=== PATIENT | male | born 1975 | race Caucasian/White ===

== ENCOUNTER → 2017-03-11 | Outpatient (CLI) | payer MEDICAID | LOC: OD 08:55 | PROVIDERS: ATTEND Urology | DX: R53.82 Chronic fatigue, unspecified (principal) | CPT/HCPCS: 36415; 82533; 84443 ==

== ENCOUNTER 2018-11-18 17:08 | Emergency (ER) | payer MEDICAID ==
[2018-11-18] MEDS ORDERED: IPRATROPIUM/ALBUTEROL 0.5-2.5 MG/3 ML AMPUL NEB ONE ×2 (18:17→19:31)
[2018-11-18] MEDS ORDERED: NORMAL SALINE 1000 ML 1,000 ML IV ONE (18:17)
--- NOTE | 2018-11-18 18:19 | ER Document Report ---
ED Medical Screen (RME) - General Chief Complaint: Flu Symptoms Stated Complaint: POSSIBLE PROSTATE ISSUE, FLU SYMPTOMS Time Seen by Provider: 11/18/18 18:14 Mode of Arrival: Wheelchair Information source: Patient Notes: Patient is a 43-year-old male who presents to the emergency department today with multiple complaints. Patient reports flulike symptoms to include fever, cough, congestion and wheezing. He states he has been exposed to people with the flu. Patient reports body aches, nausea and diarrhea. Patient also reports bilateral testicle pain with difficulty urinating and dark urine. He states he has a history of prostatitis and states this feels similar. Patient denies any ongoing medical issues and denies using any medications daily. Exam: Expiratory wheezes noted bilaterally, no respiratory distress noted. I have greeted and performed a rapid initial assessment of this patient. A comprehensive ED assessment and evaluation of the patient, analysis of test results and completion of the medical decision making process will be conducted by additional ED providers. Dictation of this chart was performed using voice recognition software; therefore, there may be some unintended grammatical errors. TRAVEL OUTSIDE OF THE [place] IN LAST 30 DAYS: No - Related Data Allergies/Adverse Reactions: No Known Allergies Allergy (Verified 11/18/18 17:09) Past Medical History - Social History Chew tobacco use (# tins/day): No Frequency of alcohol use: None Drug Abuse: None Renal/ Medical History: Reports: Hx Kidney Stones. Denies: Hx Peritoneal Dialysis Skin Medical History: Reports Hx MRSA - Immunizations Hx Diphtheria, Pertussis, Tetanus Vaccination: Yes Physical Exam - Vital signs Vitals: Temp Pulse Resp BP Pulse Ox 98.2 F 104 H 20 114/81 97 11/18/18 17:14 11/18/18 17:14 11/18/18 17:14 11/18/18 17:14 11/18/18 17:14 Course - Vital Signs Vital signs: Temp Pulse Resp BP Pulse Ox 98.2 F 104 H 20 114/81 97 11/18/18 17:14 11/18/18 17:14 11/18/18 17:14 11/18/18 17:14 11/18/18 17:14 Doctor's Discharge - Discharge Referrals: UMU MAGALLON MD [Primary Care Provider] - Follow up as needed
[2018-11-18 18:49] LABS: ABSOLUTE BASOPHILS # (AUTO) 0.1 10^3/uL (0.0-0.2); ABSOLUTE LYMPHOCYTES (AUTO) 0.9 10^3/uL (0.5-4.7); ABSOLUTE MONOCYTES (AUTO) 0.8 10^3/uL (0.1-1.4); ABSOLUTE NEUT (AUTO) 10.3 10^3/uL (1.7-8.2); BASOPHILS % (AUTO) 0.4 % (0-2); EOSINOPHILS % (AUTO) 0.1 % (0-6); HEMOGLOBIN 15.4 g/dL (13.5-17.0); LYMPHOCYTES % (AUTO) 7.2 % (13-45); MEAN CORPUSCULAR HEMOGLOBIN 30.1 pg (27.0-33.4); MEAN CORPUSCULAR VOLUME 86 fl (80-97); MONOCYTES % (AUTO) 6.5 % (3-13); PLATELET COUNT 200 10^3/uL (150-450); RED BLOOD COUNT 5.12 10^6/uL (4.35-5.55); RED CELL DISTRIBUTION WIDTH 13.3 % (11.5-14.0); SEGMENTED NEUTROPHILS % (AUTO) 85.8 % (42-78); TOTAL CELLS COUNTED % (AUTO) 100 %
--- NOTE | 2018-11-18 19:05 | RADIOLOGY REPORT (SQ) ---
EXAM DESCRIPTION: CHEST 2 VIEWS COMPLETED DATE/TIME: 11/18/2018 6:43 pm REASON FOR STUDY: cough, fever COMPARISON: 09/15/2013 EXAM PARAMETERS: NUMBER OF VIEWS: two views TECHNIQUE: Digital Frontal and Lateral radiographic views of the chest acquired. RADIATION DOSE: NA LIMITATIONS: none FINDINGS: LUNGS AND PLEURA: Cannot exclude limited infiltrate in the right lung laterally. Not sugg ested on the lateral view. No effusion no mass. MEDIASTINUM AND HILAR STRUCTURES: No masses or contour abnormalities. HEART AND VASCULAR STRUCTURES: Heart normal size. No evidence for failure. BONES: No acute findings. HARDWARE: None in the chest. OTHER: No other significant finding. IMPRESSION: Cannot exclude a limited right middle lobe or lower lobe infiltrate. TECHNICAL DOCUMENTATION: JOB ID: [id number] [employer]- All Rights Reserved Reading location - IP/workstation name: [email or web address]
[2018-11-18 19:13] LABS: ALANINE AMINOTRANSFERASE 41 U/L (21-72); ALBUMIN 4.9 g/dL (3.5-5.0); ALKALINE PHOSPHATASE 81 U/L (38-126); ANION GAP 10 (5-19); ASPARTATE AMINO TRANSFERASE 37 U/L (17-59); BILIRUBIN,DIRECT 0.4 mg/dL (0.0-0.4); BILIRUBIN,TOTAL 0.9 mg/dL (0.2-1.3); BLOOD UREA NITROGEN 15 mg/dL (7-20); CALCIUM 9.3 mg/dL (8.4-10.2); CARBON DIOXIDE 24 mmol/L (22-30); CHLORIDE 102 mmol/L (98-107); GLUCOSE 120 mg/dL (75-110); POTASSIUM 4.2 mmol/L (3.6-5.0); SODIUM 135.9 mmol/L (137-145); TOTAL PROTEIN 8.4 g/dL (6.3-8.2)
--- NOTE | 2018-11-18 19:30 | ER Document Report ---
ED General - General Chief Complaint: Flu Symptoms Stated Complaint: POSSIBLE PROSTATE ISSUE, FLU SYMPTOMS Time Seen by Provider: 11/18/18 18:14 Mode of Arrival: Wheelchair Notes: Patient is a 43-year-old male who presents to the emergency department with multiple chief complaints. He states that he feels his prostatitis is acting up. He does complain of some burning when he urinates, but denies penile discharge. A little over a year ago he was diagnosed with prostatitis and was given multiple antibiotics and was given a strong antibiotic that is really used to treat infections. He has been complaining of the symptoms for the the past 2 weeks, but has not seen his urologist for his issues. He has also had a cough and wheezing for the past 2 days. He also complains of sweating profusely, which he normally does, but over the past 2 days he feels he has been sweating more than normal. Every time he coughs it aggravates his prostatitis. He was taking an albuterol inhaler at home, with little relief. TRAVEL OUTSIDE OF THE [place] IN LAST 30 DAYS: No - Related Data Allergies/Adverse Reactions: No Known Allergies Allergy (Verified 11/18/18 17:09) Past Medical History - General Information source: Patient - Social History Smoking Status: Never Smoker Chew tobacco use (# tins/day): No Frequency of alcohol use: None Drug Abuse: None Family History: Reviewed & Not Pertinent Patient has suicidal ideation: No Patient has homicidal ideation: No Renal/ Medical History: Reports: Hx Kidney Stones. Denies: Hx Peritoneal Dialysis Skin Medical History: Reports Hx MRSA - Immunizations Hx Diphtheria, Pertussis, Tetanus Vaccination: Yes Review of Systems - Review of Systems Notes: REVIEW OF SYSTEMS: CONSTITUTIONAL : See HPI EENT: Denies eye, ear, throat, or mouth pain, discharge, or symptoms. Denies nasal or sinus congestion. CARDIOVASCULAR: See HPI RESPIRATORY: See HPI GASTROINTESTINAL: Denies nausea, vomiting, and diarrhea. Denies abdominal pain. Denies constipation. GENITOURINARY: Denies difficulty urinating, burning, blood in urine, urgency or frequency. MUSCULOSKELETAL: Denies neck and back pain. Denies joint pain or swelling. SKIN: Denies rash, itchiness, or lesions HEMATOLOGIC : Denies easy bruising or bleeding. LYMPHATIC: Denies swollen, painful, enlarged glands. NEUROLOGICAL: Denies no numbness or tingling denies weakness. Denies headache. Denies altered mental status. Denies alteration in speech. PSYCHIATRIC: Denies stress, anxiety, alteration in sleep patterns, or depression. All other systems reviewed and negative. Physical Exam - Vital signs Vitals: Temp Pulse Resp BP Pulse Ox 98.2 F 104 H 20 114/81 97 11/18/18 17:14 11/18/18 17:14 11/18/18 17:14 11/18/18 17:14 11/18/18 17:14 - Notes Notes: PHYSICAL EXAMINATION: GENERAL: Appears dehydrated, healthy, well-nourished, no acute distress. HEAD: Normocephalic, atraumatic. EYES: PERRL, conjunctiva normal, all extraocular movements intact, sclera nonicteric ENT: Dry mucous membranes. NECK: Supple, no noticeable swelling, redness, rash. Normal range of motion. LUNGS: Wheezes noted bilaterally. CARDIOVASCULAR: S1-S2, regular rate, regular rhythm. Radial pulses 2+, normal. ABDOMEN: Normoactive bowel sounds. Soft, nontender, no guarding, no rebound tenderness, and no masses palpated. EXTREMITIES: Normal strength and range of motion, no pitting or edema. No cyanosis. NEUROLOGICAL: Moves all extremities upon command. Strength 5/5 in all extremities. PSYCH: Normal mood, normal affect. SKIN: Warm, dry. No rash, lesions, ulcerations noted. Normal skin turgor. Course - Re-evaluation Re-evalutation: 11/18/18 21:16 Patient's scrotal ultrasound is negative at this time. He most likely has p rostatitis, due to him having the same symptoms as having prostatitis before. I have discussed with him that he needs to see his urologist for follow-up. He verbalized understanding. His chest x-ray shows that he has a right middle and lower lobe pneumonia. I have reviewed the x-ray and agree that he does have some infiltrates in the area. I have discussed these results with the patient. Patient is also mildly hyponatremic. He has been given IV fluids to help replace this. 11/18/18 21:29 We are waiting patient's urinalysis. He has been told multiple times by his primary nurse and myself that he needs to provide urine in order to complete his workup. He states he will urinate when he feels the urge to. 11/18/18 23:25 Patient's urinalysis is unremarkable at this time. I have informed the patient that he will be on doxycycline for his pneumonia. I have also advised him that he needs to follow-up with his urologist first thing in the morning. He is in agreement with this plan. Verbal discharge instructions were given to the patient. They verbalized understanding. They are stable for discharge. - Vital Signs Vital signs: Temp Pulse Resp BP Pulse Ox 99.1 F 97 16 120/70 100 11/18/18 20:39 11/18/18 20:39 11/18/18 20:39 11/18/18 20:39 11/18/18 20:39 - Laboratory Result Diagrams: 11/18/18 18:36 11/18/18 18:36 Laboratory results interpreted by me: 11/18/18 11/18/18 11/18/18 18:36 18:36 21:33 WBC 12.0 H Seg Neutrophils % 85.8 H Lymphocytes % 7.2 L Absolute Neutrophils 10.3 H Sodium 135.9 L Glucose 120 H Total Protein 8.4 H Urine Ketones TRACE H Urine Urobilinogen 4.0 H Discharge - Discharge Clinical Impression: Pneumonia Qualifiers: Pneumonia type: due to unspecified organism Laterality: right Lung location: lower lobe of lung Qualified Code(s): J18.1 - Lobar pneumonia, unspecified organism Condition: Stable Disposition: HOME, SELF-CARE Additional Instructions: You were seen today in the emergency department for prostate issues and a cough. You have pneumonia. You have been prescribed doxycycline, medication for pneum onia. Please take all your medication as prescribed. Please follow-up with your urologist tomorrow morning in regards to your prostatitis. Please let them know that you are on doxycycline. Make sure you stay well-hydrated. If you develop a fever greater than 100.4 F, have worsening symptoms, develop shortness of breath, or have any symptoms that are worrisome to you, please return to the emergency department. Prescriptions: Doxycycline Hyclate 100 mg PO BID #14 capsule Referrals: UMU MAGALLON MD [Primary Care Provider] - Follow up as needed
[2018-11-18] MEDS ORDERED: RINGERS SOLUTION,LACTATED 1,000 ML IV ONE (19:31)
[2018-11-18] MEDS ORDERED: ACETAMINOPHEN 325 MG TABLET PO ONE (20:24)
--- NOTE | 2018-11-18 20:29 | RADIOLOGY REPORT (SQ) ---
EXAM DESCRIPTION: U/S SCROTUM W/DOPPLER COMPLETED DATE/TIME: 11/18/2018 8:12 pm REASON FOR STUDY: bilateral testicular pain hx COMPARISON: None. TECHNIQUE: Static and realtime oliveira scale imaging of the scrotum and testes. Selected color Doppler and spectral images recorded to document blood flow. LIMITATIONS: None. FINDINGS: RIGHT: TESTICLE: Normal size. Normal echotexture. Normal blood flow. No mass. EPIDIDYMIS: Normal. HYDROCELE OR VARICOCELE: Small hydrocele. No varicocele. HERNIA OR EXTRA-TESTICULAR MASS: No. OTHER: No other significant finding. LEFT: TESTICLE: Normal size. Normal echotexture. Normal blood flow. No mass. EPIDIDYMIS: Normal. HYDROCELE OR VARICOCELE: No. HERNIA OR EXTRA-TESTICULAR MASS: No. OTHER: No other significant finding. IMPRESSION: NO EVIDENCE OF TESTICULAR MASS OR TORSION. TECHNICAL DOCUMENTATION: JOB ID: [id number] 2010 [employer]- All Rights Reserved Reading location - IP/workstation name: [email or web address]
[2018-11-18 21:51] LABS: APPEARANCE,URINE CLEAR; BILIRUBIN,URINE NEGATIVE (NEGATIVE); COLOR,URINE YELLOW; GLUCOSE, URINE NEGATIVE (NEGATIVE); KETONES,URINE TRACE mg/dL (NEGATIVE); LEUKOCYTE ESTERASE,URINE NEGATIVE (NEGATIVE); NITRITE,URINE NEGATIVE (NEGATIVE); PROTEIN,URINE NEGATIVE (NEGATIVE); URINE SPECIFIC GRAVITY 1.019
[2018-11-18] MEDS ORDERED: DOXYCYCLINE HYCLATE 100 MG TABLET PO ONE (23:22)
[2018-11-18 23:39] VITALS: BP 125/84
== END 2018-11-18 23:38 | disposition home or self-care (01) ==
LOC: ER 17:08
DX: J18.1 Lobar pneumonia, unspecified organism (principal); R30.9 Painful micturition, unspecified; R05 Cough
CPT/HCPCS: 94640 ×2; 99284; 96360; 96361; 36415; 85025; 80053; 81001; 71046; 76870; 93976; J3490 ×2; J7030; J7120; J7620